=== PATIENT | female | born 1935 | race Caucasian/White ===

== ENCOUNTER 2021-01-11 20:59 | Emergency (ER) | payer OTHER ==
[2021-01-11 21:05] VITALS: BP 165/76; PULSE 77; TEMP 98.7; BMI 31.8
== END 2021-01-11 22:56 | disposition home or self-care (01) ==
LOC: FER 20:59
DX: U07.1 COVID-19 (principal)
CPT/HCPCS: 71046-TC-FY; 82962; 87804; 99284-25; C9803; U0003; U0005